=== PATIENT | male | born 1980 | race Caucasian/White ===

== ENCOUNTER 2017-04-26 18:57 | Emergency (ER) | payer OTHER ==
[~2017-04-26] VITALS: Ht 175.3 cm; Wt 68.0 kg
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
== END 2017-04-27 00:59 | disposition home or self-care (01) ==
LOC: CED 18:57
DX: S43.51XA Sprain of right acromioclavicular joint, initial encounter (principal); F17.210 Nicotine dependence, cigarettes, uncomplicated; V19.88XA Pedal cyclist (driver) (passenger) injured in other specified transport accidents, initial encounter; Y92.9 Unspecified place or not applicable
CPT/HCPCS: 73030; 99283